=== PATIENT | female | born 2000 | race American Indian/Alaskan Native ===

== ENCOUNTER 2021-03-12 01:21 | Inpatient (IN) | payer MEDICAID ==
[2021-03-12] MEDS ORDERED: ONDANSETRON 4 MG/2 ML INJ IV PRN ×2 (02:14→08:30)
[2021-03-12] MEDS ORDERED: BUTORPHANOL 2 MG/1 ML INJ IV PRN ×2 (02:14)
[2021-03-12] MEDS ORDERED: LIDOCAINE (2%) 20 MG/1 ML VIAL 20 ML MDV INFILTRATI ONE (02:14)
[2021-03-12] MEDS ORDERED: METHYLERGONOVINE MALEATE 0.2 MG/ML VIAL IM PRN (02:14)
[2021-03-12] MEDS ORDERED: CARBOPROST TROMETHAMINE 250 MCG/1 ML INJ IM PRN (02:14)
[2021-03-12] MEDS ORDERED: miSOPROStol 200 MCG TAB PR PRN (02:14)
[2021-03-12] MEDS ORDERED: ePHEDrine SULFATE 50 MG/1 ML INJ IV PRN ×2 (02:14→08:30)
[2021-03-12] MEDS ORDERED: MINERAL OIL 30 ML ORAL LIQD PO PRN (02:14)
[2021-03-12] MEDS ORDERED: ACETAMINOPHEN 325 MG TAB PO PRN (02:14)
[2021-03-12] MEDS ORDERED: OXYTOCIN 10 UNIT/1 ML INJ IM PRN (02:14)
[2021-03-12] MEDS ORDERED: LOPERAMIDE 2 MG CAP PO PRN (02:14)
[2021-03-12] MEDS ORDERED: TERBUTALINE 1 MG/1 ML INJ SUB-Q PRN (02:14)
[2021-03-12] MEDS ORDERED: AMPICILLIN/NS 2 GM/100 ML 2 GM/100 ML BAG IV ONE (03:00)
[2021-03-12] MEDS ORDERED: OXYTOCIN DRIP 30 UNITS/500 ML BAG IV SCH ×2 (03:00)
[2021-03-12] MEDS: LACTATED RINGERS 1,000 ML IV SCH ×2 (03:33→07:32)
[2021-03-12 03:48] LABS: Hematocrit 32.1 % (30.3-42.9); Hemoglobin 10.7 gm/dl (10.1-14.3); Mean Corpuscular HGB Conc 33 % (30-34); Mean Corpuscular Volume 81 fl (79-97); Platelet Count 271 K/mm3 (140-440); Red Blood Count 3.95 M/mm3 (3.65-5.03); Red Cell Distribution Width 15.4 % (13.2-15.2)
--- NOTE | 2021-03-12 04:11 | History and Physical Report ---
History of Present Illness Date of examination: 03/12/21 Date of admission: 03/12/21 Chief complaint: Pt with c/o uc since last night History of present illness: 20 y/o presented to [facility] @ 38.6wks with c/o uc since last night. She denied VB or LOF and admitted to active FM. Pt stated she initiated her pnc @ [facility] location early in her preg. She denied any complications. Medical/surgical/social hx is unremarkable. Family hx of DM. Pt was found to be in labor and was admitted to L&D for delivery. GBS unknown. No pnr are available. Past History Past Medical History: no pertinent history Past Surgical History: no surgical history Family/Genetic History: diabetes Social history: single, full code - Obstetrical History Expected Date of Delivery: 03/20/21 Actual Gestation: 38 Week(s) 6 Day(s) : 1 Para: 0 Medications and Allergies Allergies Allergy/AdvReac Type Severity Reaction Status Date / Time No Known Allergies Allergy Verified 03/12/21 02:26 Active Meds: Active Medications Acetaminophen (Acetaminophen 325 Mg Tab) 650 mg PO Q4H PRN PRN Reason: Pain, Mild (1-3) Butorphanol Tartrate (Butorphanol 2 Mg/1 Ml Inj) 1 mg IV Q2H PRN PRN Reason: Pain, Moderate(4-6) LABOR PAIN Butorphanol Tartrate (Butorphanol 2 Mg/1 Ml Inj) 2 mg IV Q2H PRN PRN Reason: Pain , Severe (7-10) Carboprost Tromethamine (Carboprost Tromethamine 250 Mcg/1 Ml Inj) 250 mcg IM ONCE PRN PRN Reason: Uterine Bleeding Ephedrine Sulfate (Ephedrine Sulfate 50 Mg/1 Ml Inj) 10 mg IV Q2M PRN PRN Reason: Hypotension Oxytocin/Sodium Chloride (Pitocin/Ns 30 Unit/500ml) 30 units in 500 mls @ 2 mls/hr IV TITR CHERI; Protocol Lactated Ringer's (Lactated Ringers) 1,000 mls @ 125 mls/hr IV DIRECT CHERI Last Admin: 03/12/21 03:33 Dose: 125 mls/hr Documented by: Oxytocin/Sodium Chloride (Pitocin/Ns 30 Unit/500ml) 30 units in 500 mls @ 40 mls/hr IV TITR CHERI; Protocol Ampicillin Sodium (Ampicillin/Ns 1 Gm/50 Ml) 1 gm in 50 mls @ 100 mls/hr IV Q4H CHERI; Protocol Loperamide HCl (Loperamide 2 Mg Cap) 2 mg PO ONCE PRN PRN Reason: give with Hemabate Methylergonovine Maleate (Methylergonovine Maleate 0.2 Mg/Ml Vial) 0.2 mg IM ONCE PRN PRN Reason: Uterine Bleeding Mineral Oil (Mineral Oil 30 Ml Oral Liqd) 30 ml PO QHS PRN PRN Reason: Constipation Misoprostol (Misoprostol 200 Mcg Tab) 800 mcg [place] ONCE PRN PRN Reason: Uterine Bleeding Ondansetron HCl (Ondansetron 4 Mg/2 Ml Inj) 4 mg IV Q8H PRN PRN Reason: Nausea And Vomiting Oxytocin (Oxytocin 10 Unit/1 Ml Inj) 10 unit IM ONCE PRN PRN Reason: Uterine Bleeding Terbutaline Sulfate (Terbutaline 1 Mg/1 Ml Inj) 0.25 mg SUB-Q ONCE PRN PRN Reason: Hyperstimulation/Hypertonicity Review of Systems All systems: negative Eyes: deferred Ears, nose, mouth and throat: deferred Breasts: normal Genitourinary: normal appearance Rectal Exam: normal exam-external/orifice - Vital Signs Vital signs: Vital Signs Pulse BP 77 130/69 03/12/21 01:54 03/12/21 01:54 Temp Pulse Resp BP Pulse Ox 99 F 90 17 133/77 03/12/21 03:08 03/12/21 03:59 03/12/21 03:08 03/12/21 03:59 - Physical Exam Breasts: Positive: normal Abdomen: Positive: normal appearance, soft, normal bowel sounds Genitourinary (Female): Positive: normal external genitalia, normal perenium Vulva: both: normal Vagina: Positive: normal moisture Uterus: Positive: enlarged, normal contour, other (gravid) Adnexa: both: normal Anus/Rectum: Positive: normal perianal skin Extremities: Positive: normal - Obstetrical FHR: auscultation normal, category 1 Uterine Contraction Monitor Mode: External Cervical Dilatation: 5 (per nurse) Cervical Effacement Percentage: 50 station: -3 Uterine Contraction Pattern: Regular Uterine Tone Measurement Phase: Resting Uterine Contraction Intensity: Moderate Results Result Diagrams: 03/12/21 03:30 Abnormal lab results 03/12/21 Range/Units 03:30 MCH 27 L (28-32) pg RDW 15.4 H (13.2-15.2) % All other labs normal. Assessment and Plan A: IUP@ 38.6 wks GBS unknown P: Admit to L&D GBS protocal Start Pitocin Pain med/Epidural prn Obtain PNR ESCOBAR Anticipate - Patient Problems (1) Supervision of normal IUP (intrauterine ) in primigravida Current Visit: Yes Status: Acute (2) GBS screening not performed Current Visit: Yes Status: Acute
[2021-03-12 06:13] LABS: HCG,Quantitative 6664 mIU/mL (0-4); Hepatitis C Virus Antibody Non-Reactive (NonReactive)
[2021-03-12] MEDS ORDERED: AMPICILLIN/NS 1 GM/50 ML 1 GM/50 ML BAG IV SCH (07:00)
[2021-03-12] MEDS ORDERED: LACTATED RINGERS 250 ML IV SOLN IV ONE (07:56)
[2021-03-12] MEDS ORDERED: LACTATED RINGERS 1,000 ML IV SCH (08:15)
[2021-03-12] MEDS ORDERED: NALOXONE 2 MG/2 ML INJ IV PRN (08:30)
[2021-03-12] MEDS ORDERED: fentaNYL-BUPIV 2 MCG/ML-0.125% 200 MCG/100 ML BAG EPIDURAL SCH (08:30)
[2021-03-12] MEDS ORDERED: diphenhydrAMINE 50 MG/ML VIAL IV PRN (08:30)
[2021-03-12] MEDS ORDERED: NalbUPHINE 10 MG/1 ML INJ IV PRN (08:30)
--- NOTE | 2021-03-12 09:03 | Anesthesia Consultation ---
Anesthesia Consult and Med Hx Date of service: 03/12/21 - Airway Anesthetic Teeth Evaluation: Good ROM Head & Neck: Adequate Mental/Hyoid Distance: Adequate Mallampati Class: Class II Intubation Access Assessment: Probably Good - Pulmonary Exam CTA: Yes - Cardiac Exam Cardiac Exam: RRR - Pre-Operative Health Status ASA Pre-Surgery Classification: ASA2 Proposed Anesthetic Plan: Epidural - Pulmonary Hx Smoking: No Hx Asthma: No Hx Sleep Apnea: No - Cardiovascular System Hx Hypertension: No Hx Heart Attack/AMI: No Hx Angina: No - Central Nervous System Hx Seizures: No - Gastrointestinal Hx Gastroesophageal Reflux Disease: No - Endocrine Hx Renal Disease: No Hx Liver Disease: No Hx Insulin Dependent Diabetes: No Hx Non-Insulin Dependent Diabetes: No - Other Systems Hx Alcohol Use: No Hx Obesity: Yes
--- NOTE | 2021-03-12 09:06 | Progress Note ---
Labor Epidural - Labor Epidural Start Time: 08:33 Stop Time: 09:02 Performed by:: FRANDY VALDEZ (Malgorzata Gonzalez [facility]) Procedure: Patient is requesting epidural for labor and pain. H&P, labs were reviewed. Patient IDed, H&P reviewed, all questions and concerns were answered, and consent was signed. Timeout was performed at bedside. Patient in sitting position. Sterile prep and drape was performed. 3ml of 1% lidocaine skin wheal at L[3]- L [4]. 18-gauge akilah epidural needle was advanced to loss of resistance with air technique 8cm. Negative CSF negative blood. Epidural catheter advanced to [14] centimeters. Unable to flush catheter. 18-gauge akilah epidural needle was advanced to loss of resistance with air technique 8cm. Negative CSF negative blood. Epidural catheter advanced to [14] centimeters. [negative] Aspiration [negative] test dose. Sterile dressing applied. Patient tolerated procedure.
--- NOTE | 2021-03-12 10:34 | Event Note ---
Date: 03/12/21 Assumed care of patient. Patient has epidural and has just received re-dose. SVE /-1. Patient is resting in left lateral position.
[2021-03-12] MEDS ORDERED: AYR SALINE NASAL GEL 14.1 GM NS PRN (11:26)
--- NOTE | 2021-03-12 12:30 | Event Note ---
Date: 03/12/21 SV 9/0.
[2021-03-12] MEDS ORDERED: LANOLIN/ZINC/DIMETHICONE (LANSINOH) 7 GM TP PRN (14:59)
[2021-03-12] MEDS ORDERED: WITCH HAZEL/ GLYCERIN PAD TP PRN (14:59)
[2021-03-12] MEDS ORDERED: HYDROcodone/ACETAMINOPHEN 5-325 MG TAB PO PRN (14:59)
[2021-03-12] MEDS ORDERED: MAGNESIUM HYDROXIDE (MOM) ORAL LIQD UDC PO PRN (14:59)
--- NOTE | 2021-03-12 15:08 | Procedure Note ---
OB Delivery Note - Delivery Date of Delivery: 03/12/21 Surgeon: MANA LUCAS Estimated blood loss: other (250 cc) - Vaginal Delivery presentation: vertex Delivery position: OA Intrapartum events: none Delivery induction: none Delivery augmentation: rupture of membranes Delivery monitor: external FHT, external uterine, internal FHT, internal uterine Route of delivery: Delivery placenta: spontaneous Delivery cord: nuchal cord, 3 umbilical vessels Episiotomy: none Delivery laceration: 1st degree Delivery repair: vicryl Anesthesia: epidural Delivery comments: Spontaneous vaginal delivery at 14:13 of liveborn male infant weighing 6 lb. 13 oz. over 1st degree perineal laceration with apgars of 8/9. Epidural anesthesia. Loose nuchal cord times 1, manually reduced. was atraumatic; baby was placed skin to skin with mom immediately after delivery. Baby was bulb suctioned and dried with warm towel. Spontaneous cry and respirations. Cord blood obtained. Spontaneous delivery of intact placenta and membranes by fermin mechanism. EBL 250 cc. Pitocin to IV fluids after delivery of placenta. Fundus firm and midline. First degree perineal laceration and small vaginal laceration repaired with 2-0 vicryl. No other lacerations noted. Vaginal sweep negative. Sponge count correct. Mother and baby stable.
[2021-03-12] MEDS: DOCUSATE SODIUM 100 MG CAP PO SCH (22:00)
[2021-03-12] MEDS: IBUPROFEN 600 MG TAB PO SCH (22:39)
[2021-03-13] MEDS: IBUPROFEN 600 MG TAB PO SCH (03:30)
[2021-03-13 06:10] LABS: Hematocrit 23.5 % (30.3-42.9); Hemoglobin 7.8 gm/dl (10.1-14.3)
[2021-03-13] MEDS: DOCUSATE SODIUM 100 MG CAP PO SCH ×3 (10:55→22:59)
--- NOTE | 2021-03-13 11:02 | Progress Note ---
Assessment and Plan pt stable. low hct. may need iron. Subjective - Subjective Date of service: 03/13/21 Principal diagnosis: s/p Patient reports: appetite normal, voiding normally, pain well controlled, ambulating normally [place]: doing well Objective - Vital Signs Latest vital signs: Vital Signs Temp Pulse Resp BP BP Pulse Ox 03/13/21 07:37 97.9 F 72 18 109/63 100 03/13/21 01:00 98.2 F 96 H 20 128/69 100 03/12/21 22:39 20 03/12/21 20:33 98.5 F 96 H 18 110/62 99 03/12/21 16:32 79 100 03/12/21 16:27 67 100 03/12/21 16:22 94 H 100 03/12/21 16:20 97 H 108/56 03/12/21 16:17 117 H 100 03/12/21 16:12 86 100 03/12/21 16:07 99 H 99 03/12/21 16:05 90 103/56 03/12/21 16:02 77 100 03/12/21 15:58 79 98/55 03/12/21 15:57 77 100 03/12/21 15:52 70 100 03/12/21 15:50 81 93/54 03/12/21 15:47 101 H 100 03/12/21 15:42 108 H 100 03/12/21 15:37 81 100 03/12/21 15:35 95 H 83/54 03/12/21 15:32 84 99 03/12/21 15:27 87 99 03/12/21 15:22 69 99 03/12/21 15:20 99 H 82/45 03/12/21 15:18 108 H 73/35 03/12/21 15:17 101 H 100 03/12/21 15:12 110 H 100 03/12/21 15:07 109 H 100 03/12/21 15:05 115 H 79/37 03/12/21 15:02 107 H 100 03/12/21 14:57 121 H 100 03/12/21 14:52 111 H 100 03/12/21 14:47 118 H 100 03/12/21 14:42 116 H 98 03/12/21 14:37 92 H 100 03/12/21 14:35 86 113/55 03/12/21 14:32 87 100 03/12/21 14:27 93 H 100 03/12/21 14:22 86 99 03/12/21 14:21 93 H 138/82 03/12/21 14:17 97 H 100 03/12/21 14:12 92 H 100 03/12/21 14:11 79 81 L 03/12/21 14:06 78 100 03/12/21 14:05 85 139/84 76 L 03/12/21 14:01 74 100 03/12/21 13:56 70 100 03/12/21 13:51 69 100 03/12/21 13:50 69 135/75 03/12/21 13:46 67 100 03/12/21 13:41 67 100 03/12/21 13:36 63 100 03/12/21 13:35 68 128/70 03/12/21 13:31 67 100 03/12/21 13:26 65 100 03/12/21 13:21 63 100 03/12/21 13:20 71 132/71 03/12/21 13:16 71 100 03/12/21 13:11 65 100 03/12/21 13:06 68 100 03/12/21 13:05 82 140/63 03/12/21 13:01 86 100 03/12/21 12:56 84 100 03/12/21 12:51 73 100 03/12/21 12:50 70 133/63 03/12/21 12:46 71 100 03/12/21 12:41 73 99 03/12/21 12:36 75 129/59 100 03/12/21 12:31 69 100 03/12/21 12:26 71 100 03/12/21 12:21 71 100 03/12/21 12:20 71 134/77 03/12/21 12:16 70 99 03/12/21 12:11 69 100 03/12/21 12:06 70 100 03/12/21 12:05 70 133/61 03/12/21 12:01 72 100 03/12/21 11:56 70 100 03/12/21 11:51 69 99 03/12/21 11:50 69 138/74 03/12/21 11:46 66 99 03/12/21 11:41 69 98 03/12/21 11:36 69 99 03/12/21 11:35 70 135/65 03/12/21 11:31 71 99 03/12/21 11:26 72 99 03/12/21 11:21 69 143/66 100 03/12/21 11:16 70 100 03/12/21 11:11 69 100 03/12/21 11:06 69 138/74 100 03/12/21 11:01 60 100 Intake and Output 03/12/21 03/13/21 03/13/21 23:59 07:59 15:59 Intake Total 360 120 Output Total 600 1000 Balance -600 -640 120 Intake: Oral 360 120 Output: Urine 600 1000 Void 600 1000 Other: Total, Intake Amount 120 120 Total, Output Amount 600 400 # Voids Void 1 1 - Exam Abdomen: Present: normal appearance, soft Vulva: both: normal Uterus: Present: normal, firm Extremities: Present: normal Incision: Present: normal, dry, intact - Labs Labs: Abnormal lab results 03/13/21 Range/Units 04:34 Hgb 7.8 L (10.1-14.3) gm/dl Hct 23.5 L D (30.3-42.9) %
[2021-03-13] MEDS: IBUPROFEN ORAL LIQD 100 MG/5 ML ORAL.LIQD PO SCH ×2 (13:46→20:09)
--- NOTE | 2021-03-13 14:45 | Post Anesthesia Evaluation ---
- Post Anesthesia Evaluation Patient Participated: Yes Airway Patent: Yes Stable Respiratory Function: Yes Nausea/Vomiting: No Temp > 96.8F: Yes Pain Manageable: Yes Adequeate Hydration: Yes Anesthesia Complications: No Block Receding Appropriately: Yes Patient on Ventilator: No
[2021-03-14] MEDS: IBUPROFEN ORAL LIQD 100 MG/5 ML ORAL.LIQD PO SCH (02:11)
[2021-03-14] MEDS ORDERED: TETANUS,DIPH,PERTUSS(ACELL) VACCINE 0.5 ML SYRINGE IM ONE (06:00)
[2021-03-14] MEDS ORDERED: FERROUS SULFATE 325 MG TAB PO SCH (14:00)
--- NOTE | 2021-03-14 15:23 | Progress Note ---
Assessment and Plan A: day 2 S/P . Anemia. P: Discharge patient home today. Discussed with patient discharge instructions and warning signs. Advised patient to take her vitamin daily at home and her iron supplements 3 times per day at home. Advised patient to avoid intercourse, lifting, housework, driving. Advised patient to follow up at [facility] office in 2 days. Patient voiced understanding of all instructions. Subjective - Subjective Date of service: 03/14/21 Principal diagnosis: day 2 S/P Interval history: Patient requests discharge home today. Patient reports small to scant amount of lochia. Patient denies headache, weakness, dizziness, fatigue, chest pain, shortness of breath, leg pain, or any other problems. Patient refuses repeat CBC for anemia; pt. states she will take her iron supplements 3 times per day at home and eat iron rich foods. Patient reports: appetite normal, voiding normally, pain well controlled, flatus, ambulating normally, no dizzy ambulation, no nauseated : doing well, bottle feeding Objective - Vital Signs Latest vital signs: Vital Signs Temp Pulse Resp BP Pulse Ox 03/14/21 08:44 98.4 F 75 18 113/62 99 03/14/21 00:21 97.9 F 75 20 120/46 100 03/13/21 15:55 98.1 F 102 H 18 111/59 98 Intake and Output 03/13/21 03/14/21 03/14/21 23:59 07:59 15:59 Intake Total 1140 240 Output Total 400 Balance 1140 -160 Intake: Oral 720 240 Intake, Free Water 420 Output: Urine 400 Void 400 Other: Total, Intake Amount 240 240 Total, Output Amount 400 # Voids Void 1 3 - Exam Cardiovascular: Present: Regular rate Lungs: Present: Clear to auscultation Abdomen: Present: normal appearance, soft. Absent: distention, tenderness, guarding, rigidity Uterus: Present: normal, firm, fundal height below umbilicus. Absent: bogginess, tenderness Extremities: Present: normal. Absent: tenderness, edema
--- NOTE | 2021-03-14 15:27 | Discharge Summary ---
Providers - Providers Date of Admission: 03/12/21 11:42 Date of discharge: 03/14/21 Attending physician: ALMA FREITAS MD Primary care physician: ALMA FREITAS MD Hospitalization Reason for admission: active labor Delivery: Laceration: 1st degree Other procedures: none complications: none Discharge diagnosis: IUP at term delivered [place] baby: male Pertinent studies: Labs Hospital course: Stable hospital course Condition at discharge: Good Disposition: DC-01 TO HOME OR SELFCARE - Discharge Diagnoses (1) Term delivered Status: Acute (2) Anemia Status: Acute Plan - Provider Discharge Summary Activity: routine, no sex for 6 weeks, no heavy lifting 4 weeks, no strenuous exercise Diet: routine Instructions: routine Additional instructions: Continue taking your vitamin daily at home. Continue taking your iron supplement 3 times per day at home. Follow up at [facility] office in 2 days. Call your doctor immediately for: * Fever > 100.5 * Heavy vaginal bleeding ( >1 pad per hour) * Severe persistent headache * Shortness of breath * Reddened, hot, painful area to leg or breast - Follow up plan Follow up: MANA LUCAS CNM [Advanced Practice Nurse] - 48 Hours Forms: [facility] Discharge Summary
[2021-03-14 16:28] VITALS: BP 122/83
== END 2021-03-14 16:30 | disposition home or self-care (01) | DRG 775 ==
LOC: TRG 01:21 → APU 01:31 → LD 03:11 → TRG 11:47 → OB 22:08
PROC: 10E0XZZ Delivery of Products of Conception, External Approach (ICD-10-PCS; principal; 2021-03-12)
PROC: 3E0R3BZ Introduction of Anesthetic Agent into Spinal Canal, Percutaneous Approach (ICD-10-PCS; 2021-03-12)
PROC: 00HU33Z Insertion of Infusion Device into Spinal Canal, Percutaneous Approach (ICD-10-PCS; 2021-03-12)
PROC: 0HQ9XZZ Repair Perineum Skin, External Approach (ICD-10-PCS; 2021-03-12)
PROC: 3E0234Z Introduction of Serum, Toxoid and Vaccine into Muscle, Percutaneous Approach (ICD-10-PCS; 2021-03-14)
DX: O69.81X0 Labor and delivery complicated by cord around neck, without compression, not applicable or unspecified (principal); O99.214 Obesity complicating childbirth; E66.9 Obesity, unspecified; Z3A.38 38 weeks gestation of pregnancy; Z37.0 Single live birth; O70.0 First degree perineal laceration during delivery; O99.02 Anemia complicating childbirth; D64.9 Anemia, unspecified; Z23 Encounter for immunization; Z20.822 Contact with and (suspected) exposure to COVID-19
CPT/HCPCS: 36415; 84702; 85014; 85018; 85027; 86592; 86706; 86762; 86803; 86850; 86900; 86901; 87806; G0378; J0290; J0595; J7120; U0003